=== PATIENT | male | born 1950 | race Caucasian/White ===

== ENCOUNTER 2017-03-14 17:31 | Emergency (ER) | payer MEDICARE ==
[~2017-03-14] VITALS: Ht 182.9 cm; Wt 145.2 kg
[2017-03-14] MEDS ORDERED: GABAPENTIN300 MG PO (17:36)
[2017-03-14] MEDS ORDERED: METFORMIN 500M500 MG PO (17:36)
[2017-03-14] MEDS ORDERED: BISOPROLOL FUMA1 TA4 PO (17:36)
[2017-03-14] MEDS ORDERED: GLIPIZIDE 5MG TA5 MG PO (17:37)
[2017-03-14] MEDS ORDERED: MELOXICAM15 MG PO (17:37)
[2017-03-14] MEDS ORDERED: AMLODIPINE10 MG PO (17:37)
[2017-03-14] MEDS ORDERED: CLOPIDOGREL75 MG PO (17:37)
[2017-03-14] MEDS ORDERED: K-DUR 20MEQ TA20 MEQ PO (17:38)
[2017-03-14] MEDS ORDERED: LISINOPRIL40 MG PO (17:39)
[2017-03-14] MEDS ORDERED: BENTYL10 MG PO (17:39)
[2017-03-14] MEDS ORDERED: DOXAZOSIN 4MG TA4 MG PO (17:39)
--- NOTE | 2017-03-14 18:05 | RADIOLOGY REPORT PS360 ---
CT HEAD W/O CONTRAST COMPARISON: None HISTORY: Right-sided numbness and right-sided weakness, history of previous stroke TECHNIQUE: Multiple axial scans obtained from base skull to the vertex and were performed without IV contrast. FINDINGS: The base of skull appears normal. The mastoids are clear. The basilar cisterns are mildly prominent. The ventricular system is normal. There is a small focal hypodense lesion left periventricular white matter. The borders are somewhat ill-defined and this would be consistent with a semiacute ischemic infarct. There is no bleed and there are no extra-axial fluid collections. There are subtle particular hypodensities consistent with chronic ischemic white matter changes. The sylvian fissures and cortical sulci are mildly prominent. Bony calvarium appears intact. IMPRESSION: Findings suggesting a semiacute ischemic infarct left MCA distribution. The there is a history of a previous stroke I would expect old infarct to be more well-defined and more hypodense. Suggest clinical correlation.] Follow-up MRI scan of the brain would be helpful for additional information depending on the patient's symptoms.
[2017-03-14 18:18] LABS: HEMOGLOBIN 15.9 g/dL (14.1-18.0)
--- NOTE | 2017-03-14 18:19 | Emergency Room Report ---
History of Present Illness Time Seen by [id number] Presenting Problem in Triage Pt arrived:Wheelchair Presenting Problem:PT PRESENTED TO ER C/O R SIDED CHEST PAIN AND SHOULDER PAIN. PT ALSO REPORTS NUMBNESS ON R SIDE OF FACE. R SIDED FACIAL DROOP NOTED, ALSO R SIDED WEAKNESS. PT REPORTS FACIAL NUMBNESS BEGAN ON THURSDAY OF THIS WEEK, PT STATES HAS HAD INTERMITTENT PAIN ON R SIDED OF CHEST AND R SIDE OF BODY SINCE THURSDAY, STATES RUE FEELS VERY HEAVY Onset of symptoms date/time:03/10/17/ or onset unknown for:MEDICAL HX UNKNOWN Treatment Prior to Arrival: [employer] Provided by: Sepsis Risk Assessment: Temp: 97.9 B/P: 148/94 MAP: 112 Pulse: 55 Resp: 18 Recent fever? N Clinical Suspician of Infection? N Mental Status: 1 - Regular (Normal Baseline) Sepsis Risk:Low Sepsis Risk Have you (or family members/close friends) recently traveled outside the [place]? N If Yes, where/when: Have you had exposure to infectious disease within the past month? N TB? Other? Specify: Patient with remote hx of CVA, states has had facial droop on right, facial numbness on right, RUE weakness and numbness, RLE weakness to the point of needing to ambulate with a cane, onset five days ago acutely. Symptoms not improving. He also has blurred, but not double, vision. ALLERGIES Coded Allergies: No Known Allergies (03/14/17) Home Medications Reported Medications METFORMIN HCL (Metformin 500MG) 500 MG PO BID BISOPROLOL FUMARATE/HCTZ (Bisoprolol-Hctz 10-6.25 MG Tab) 1 TAB PO DAILY Gabapentin (Gabapentin 300MG) 300 MG PO QHS Meloxicam (Meloxicam 15MG) 15 MG PO DAILY CLOPIDOGREL BISULFATE (Clopidogrel 75MG) 75 MG PO DAILY Glipizide (Glipizide 5MG) 5 MG PO DAILY Amlodipine Besylate (Amlodipine) 10 MG PO DAILY POTASSIUM CHL (Potassium Chloride) 20 MEQ PO TID Lisinopril (Lisinopril 40MG) 40 MG PO DAILY Dicyclomine Hcl (Bentyl 10MG) 10 MG PO DAILY Doxazosin Mesylate (Doxazosin 4MG Tablet) 8 MG PO BID History Medical History General CAD? Yes Angina: No [place]: Yes Hypertension? Yes GERD? Yes Thyroid Problems? No Hypothyroidism? No CVA? Yes Seizures? No Diabetes? Yes Insulin Dependent: No Insulin Pump: No Home FSBS? Yes Arthritis? Yes More? No Immunization Hx DT/Tetanus Unknown Surgical Hx Previous Surgery?Y ESOPHAGUS-PLASTIC CARDIAC STENTS STOMACH RUPTURE Social History Smoking Hx Smoker: Never Smoker Tobacco: No Alcohol Alcohol: No Review of Systems All Other Systems Reviewed and Negative Psychiatric/Neurological see HPI Physical Exam Vital Signs Vital Signs Date Time Temp Pulse Resp B/P Pulse O2 O2 Flow FiO2 Ox Delivery Rate 03/14 1923 97.6 70 20 130/76 97 03/14 1920 97.6 56 20 158/77 96 03/14 1835 55 20 193/86 96 03/14 1831 20 03/14 1828 58 20 197/100 97 03/14 1731 97.9 55 18 148/94 98 General Appearance normal appearance, WD/WN, no apparent distress Eye Exam - bilateral eye normal exam, bilateral eye PERRL, bilateral eye EOMI Ear, Nose, Throat hearing grossly normal Neck normal inspection, non-tender, supple, full range of motion Respiratory Status Yes: trachea midline, chest symmetrical, non tender chest. No: respiratory distress, tender on palpation, use of accessory muscles, pain on inspiration, pain on expiration, productive cough, non productive cough. Lung Sounds bilateral: normal breath sounds, lungs clear. Cardiovascular normal exam, regular rate/rhythm, no peripheral edema, no gallop, no JVD, no murmur, no rub, normal peripheral pulses, JVD Peripheral Pulses Pulses normal Yes Gastrointestinal normal bowel sounds, normal exam, non tender, soft, no organomegaly, no pulsatile mass, no guarding, no rebound Extremities non-tender, normal inspection, normal capillary refill, no calf tenderness (see neuro exam) Neurologic alert, oriented x 3, NIHSS 5 for : right facial droop, right facial numbness, RUE weakness and numbness, RUE drift, R leg weakness. Glascow Coma Scale Glascow Coma Scale Response Value EYE response: 4 Spontaneously 4 MOTOR response: 6 OBEYS 6 VERBAL response: 5 Oriented & Converses 5 Total 15 Reflexes DTR 2+ ankle (R), 2+ ankle (L) Skin intact, normal color Stroke Score/Tx Stroke Evaluation NIH STROKE SCORE NIH STROKE SCORE Response Value 1a.Level of Consciousness ALERT 0 1b.LOC Questions ANSWERS BOTH CORRECTLY 0 1c.LOC Commands OBEYS BOTH CORRECTLY 0 2 .Best Gaze NORMAL 0 3 .Visual NO VISUAL LOSS 0 4 .Facial Palsy MINOR 1 5a.Motor Arm Left NO DRIFT 0 5b.Motor Arm Right DRIFT 1 6a.Motor Leg Left NO DRIFT 0 6b.Motor Leg Right CAN'T RESIST GRAVITY 2 7 .Limb Ataxia ABSENT 0 8 .Sensory PARTIAL LOSS 1 9 .Best Language NO APHASIA 0 10.Dysarthria NORMAL ARTICULATION 0 ED.NIH11 NO NEGLECT 0 Total 5 Medical Decision Making LABS/Meds/Orders Pt receiving controlled substance in ED? No Eddie was queried for this patient? No Results/Orders Laboratory Tests 03/14/170: Sodium 141, Potassium 3.2 L, Chloride 102, Carbon Dioxide 29, BUN 18, Creatinine 1.0, Estimated Creat Clear 151, Estimated GFR (MDRD) 75, Glucose 187 H, Calcium 9.1, Total Bilirubin 0.4, AST 27, ALT 60, Alkaline Phosphatase 74, Creatine Kinase 163, CK-MB (CK-2) Rel Index 0.3, CK and CKMB Interp 0.5, Troponin I < 0.02, Total Protein 8.0, Albumin 4.1, Globulin 3.9 H, Albumin/ Globulin Ratio 1.1, WBC 7.0, RBC 5.17, Hgb 15.9, Hct 44.8, MCV 86.7, RDW 13.4, Plt Count 268, MPV 7.8, Gran % 12.1 L, Gran # 0.9 *L, Total Counted 100, Lymphocytes % 46.3, Monocytes % 40.1 H, Eosinophils % 0.9, Basophils % 0.6, Neutrophils 57, Lymphocytes (Manual) 35, Lymphocytes # 3.3, Monocytes (Manual) 3 , Monocytes # 2.8 H, Eosinophils # 0.1, Eosinophils # (Manual) 4 H, Basophils # 0.0, Basophils # (Manual) 1, Platelet Estimate NORMAL, Anisocytosis 1+, PUBS MCHC 35.4, MCH 30.7 03/14/176: POC Glucose 174 H Current Medication Orders Sig/Altagracia Start time Last Medication Dose Route Stop Time Status Admin Aspirin 324 MG ONCE ONE 03/14 1915 DC 03/14 MT 03/14 Aspirin 0 .STK-MED ONE 03/14 190 DC .ROUTE Lorazepam 1 MG ONCE ONE 03/14 1830 DC 03/14 IV 03/14 183 1831 Lorazepam 0 .STK-MED ONE 03/14 1829 DC .ROUTE Orders Procedure Date/time Status DIET-NOTHING BY MOUTH 03/15 B Active DIFFERENTIAL-WBC 03/14 1810 Complete FINGERSTICK BLOOD SUGAR 03/14 1806 Complete ELECTROCARDIOGRAM REQUEST 03/[address] HEAD REQ 03/14 173 Complete IV SALINE LOCK 03/14 173 Active CBC WITH AUTO DIFF 03/14 1734 Complete CARDIAC ENZYMES 03/14 173 Complete CHEM 12 PROFILE 03/14 173 Complete 12 LEAD EKG-BESSON (INITIAL) 03/14 UNK Active CM/EKG CM/EKG EKG rate, NSR, rhythm, no evid. of ischemic chgs, no ectopy, normal QRS, normal MT, normal EKG (SB 59 ) XRAY/CT/US XRAY/CT/US CT head CT interpretation by reviewed by me, discussed w/radiologist Time results known: 1800 CT Results abnormal, "semiacute, nine mm infarct, left perventricular white matter, indeterminate age" per our radiologist; [facility] report is also the same reading, with no acute hemorrhage. Consult MD Physician Consult Consult/PCP Dr. Ribera stroke team: rectal ASA and transfer to [facility]; leave BP alone Time Called 1816 Reason Transfer to facility, Neuro eval/care Progress ED Progress Notes Date 03/14/17 Time 1817 Comment FSBS 174. Patient initially requested to leave AMA but after discussion with family, is amenable to this MD consulting with neurology. Departure Departure Time of Disposition 1900 Disposition DC/XFER from ER to [facility] Clinical Impression Primary Impression: Stroke Qualifiers: CVA mechanism: unspecified Qualified Code: I63.9 - Cerebral infarction, unspecified Condition STABLE Referrals CONOR HANKINS (Family) ED Critical Care Critical Care Yes Time spent < 30 min Vital system(s) involved: Circulatory Failure (semiacute stroke) I was present at bedside for Coordinating pt's care, During my initial exam, Reviewing lab results, Discussing pt condition, For re-examinations, Examining radiographs (consultation; d/w family) at 1939
[2017-03-14 18:46] LABS: BUN 18 mg/dL (7-18)
[2017-03-14 18:50] LABS: GFR (ESTIMATED) 75 ML/MIN (>60)
[2017-03-14 19:23] VITALS: BP 130/76
[2017-03-14 19:29] LABS: NEUTROPHILS 57 % (42-76)
[2017-03-14 19:55] LABS: LYMPH % 26.6 % (10-50)
[2017-03-14 19:56] LABS: LYMPH # 1.8 K/mm3 (0.7-4.5)
== END 2017-03-14 19:47 | disposition short-term general hospital (02) ==
LOC: ER 17:31
PROVIDERS: Emergency Medicine
DX: I63.9 Cerebral infarction, unspecified (principal); R29.810 Facial weakness; G81.91 Hemiplegia, unspecified affecting right dominant side; R20.2 Paresthesia of skin; R29.705 NIHSS score 5; I25.10 Atherosclerotic heart disease of native coronary artery without angina pectoris; I25.2 Old myocardial infarction; I10 Essential (primary) hypertension; Z86.73 Personal history of transient ischemic attack (TIA), and cerebral infarction without residual deficits; E11.9 Type 2 diabetes mellitus without complications; Z79.84 Long term (current) use of oral hypoglycemic drugs; Z95.5 Presence of coronary angioplasty implant and graft; Z79.02 Long term (current) use of antithrombotics/antiplatelets; Z79.899 Other long term (current) drug therapy